=== PATIENT | female | born 1990 | race Hispanic/Latino ===

== ENCOUNTER 2018-12-07 19:07 | Emergency (ER) | payer SELFPAY ==
[2018-12-07] MEDS ORDERED: LIDOCAINE HCL 2% VISCOUS 15 ML UDCUP ONE (19:40)
[2018-12-07] MEDS ORDERED: MAG HYDROX/AL HYDROX/SIMETH ES 30 ML SUSP UDCUP ONE (19:40)
[2018-12-07] MEDS ORDERED: SODIUM CHLORIDE 0.9% 1000ML 1,000 ML IV ONE (19:40)
[2018-12-07 19:44] LABS: BILIRUBIN,URINE Negative (NEGATIVE); COLOR,URINE Yellow (YELLOW); GLUCOSE, URINE (UA) Negative (NEGATIVE); KETONES,URINE Negative (NEGATIVE); LEUKOCYTE ESTERASE ,URINE Large (NEGATIVE); NITRATE,URINE Negative (NEGATIVE); OCCULT BLOOD,URINE Small (NEGATIVE); PROTEIN,URINE Negative (NEGATIVE)
[2018-12-07 19:48] LABS: BASOPHILS % (AUTO) 0.6 % (0.0-5.0); EOSINOPHILS % (AUTO) 0.4 % (0.0-8.0); HEMATOCRIT 40.6 % (36-48); LYMPHOCYTES % (AUTO) 15.2 % (21.0-51.0); MEAN CORPUSCULAR HEMOGLOBIN 31.2 pg (27.0-33.0); MEAN CORPUSCULAR HGB CONC 34.7 g/dL (32.0-36.0); MEAN CORPUSCULAR VOLUME 89.8 fL (79-99); MONOCYTES % (AUTO) 7.2 % (3.0-13.0); NEUTROPHILS % (AUTO) 76.6 % (40.0-77.0); PLATELET COUNT (AUTO) 264 K/uL (130-400); RED BLOOD CELL COUNT(AUTO) 4.52 MIL/uL (4.00-5.50); RED CELL DISTRIBUTION WIDTH 12.6 % (11.0-15.5); WHITE BLOOD COUNT (AUTO) 10.3 K/uL (4.8-10.8)
[2018-12-07 19:51] LABS: APPEARANCE,URINE CLEAR (CLEAR)
[2018-12-07 19:52] LABS: HCG,QUAL RESULT NEGATIVE (NEGATIVE)
[2018-12-07 20:01] LABS: CREATININE 0.7 mg/dL (0.5-1.5); POTASSIUM 3.5 mmol/L (3.5-5.1)
[2018-12-07 20:03] LABS: BACTERIA,URINE Few /HPF (None Seen)
[2018-12-07 20:04] LABS: SQUAMOUS EPITHELIAL CELL,UR Rare /HPF (0-2)
[2018-12-07 20:06] LABS: ALBUMIN 3.8 g/dL (3.5-5.0); BILIRUBIN,TOTAL 0.2 mg/dL (0.2-1.0); TOTAL PROTEIN, SERUM 7.7 g/dL (6.0-8.3)
[2018-12-07] MEDS ORDERED: SODIUM CHLORIDE 0.9% 50 ML IV ONE (20:31)
[2018-12-07] MEDS ORDERED: CEFTRIAXONE SODIUM 1 GM ONE (20:31)
[2018-12-07] MEDS ORDERED: ONDANSETRON HCL 4 MG/2 ML VIAL ONE (21:27)
[2018-12-07] MEDS ORDERED: KETOROLAC TROMETHAMINE 30MG/ML ONE (21:27)
== END 2018-12-08 01:42 | disposition home or self-care (01) ==
LOC: EDH 19:07
DX: N39.0 Urinary tract infection, site not specified (principal); J45.909 Unspecified asthma, uncomplicated; Z90.49 Acquired absence of other specified parts of digestive tract
CPT/HCPCS: 36415; 74176; 76856; 80053; 81001; 81025; 83690; 85025; 96361; 96374; 96375; 99284; J0696; J1885; J2405; J7030

== ENCOUNTER 2023-01-05 08:40 | Emergency (ER) | payer OTHER ==
[~2023-01-05] VITALS: Ht 154.9 cm; Wt 83.9 kg
[2023-01-05 08:43] VITALS: BP 125/90
[2023-01-05] MEDS ORDERED: KETOROLAC 30MG VIAL (30MG/ML) IM STA (09:29)
[2023-01-05] MEDS ORDERED: DEXAMETHASONE SOD PHOSPHATE 4 MG/ML 1ML VIAL IM ONE (09:30)
[2023-01-05] MEDS ORDERED: NAPR375T6 PO (10:14)
[2023-01-05] MEDS ORDERED: AMOX500C2 PO (10:14)
== END 2023-01-05 10:37 | disposition home or self-care (01) ==
LOC: EDH 08:40
DX: J01.10 Acute frontal sinusitis, unspecified (principal); J45.909 Unspecified asthma, uncomplicated; Z90.49 Acquired absence of other specified parts of digestive tract
CPT/HCPCS: 99284; 81025; 96372 ×2; J1100; J1885

== ENCOUNTER 2024-07-28 20:34 | Emergency (ER) | payer BC, MEDICAID ==
[~2024-07-28] VITALS: Ht 162.6 cm; Wt 84.8 kg
[~2024-07-28 20:34] MED LIST: AMOX500C2 PO; NAPR-1505 PO
[2024-07-28 21:01] LABS: SARS-CoV-2, RNA, NAAT NEGATIVE SARS CoV-2 (NEGATIVE)
[2024-07-28 21:04] LABS: INFLUENZA TYPE A Negative For Type A (NEGATIVE); INFLUENZA TYPE B Negative For Type B (NEGATIVE)
[2024-07-28 21:17] VITALS: PULSE 74; RESP 18
[2024-07-28] MEDS: IpraTROPium/alBUTERol SULFATE 3 ML SOLUTION IH ONE (21:27)
[2024-07-28] MEDS: 0.9%NACL 1000ML 1,000 ML IV ONE (21:34)
[2024-07-28] MEDS: Solu-medROL 125MG VIAL IVP ONE (21:35)
[2024-07-28 21:43] VITALS: BP 148/86; PULSE 98; RESP 19; TEMP 98.8; O2SAT 98
[2024-07-28] MEDS ORDERED: AZIT250T9 PO (22:41)
[2024-07-28] MEDS ORDERED: METH4TAB3 PO (22:41)
== END 2024-07-28 23:25 | disposition home or self-care (01) ==
LOC: EDH 20:34
DX: J45.901 Unspecified asthma with (acute) exacerbation (principal); Z90.49 Acquired absence of other specified parts of digestive tract; Z20.822 Contact with and (suspected) exposure to COVID-19; Z79.899 Other long term (current) drug therapy
CPT/HCPCS: 99284; 96374; 71045; 87635; 87804 ×2; 81025; 94640; J7030; J2919